=== PATIENT | female | born 1960 | race Caucasian/White ===

== ENCOUNTER 2018-04-19 12:36 | Emergency (ER) | payer BC ==
[~2018-04-19] VITALS: Ht 160 cm; Wt 121.7 kg
[~2018-04-19 12:36] MED LIST: ASPIRIN81 M2 PO; BENTYL20 MG PO; CARAFATE1 GM PO; CIPRO500 MG PO; DOSTINEX PO; DULOXETINE HCL60 MG PO; FIBER1 GM PO; FLAX SEED OIL1 EACH PO; GLUCOSAMINE-CH1 EA33 PO; LISINOPRIL-HCT1 EAC3 PO; LOMOTIL TABLET1 EACH PO; LORTAB 5-325 M1 EACH PO; MELOXICAM15 MG PO; MULTIVITAMIN1 EAC2 PO; PREVACID15 MG PO; PROMETHAZINE HC25 M1 PO; SYNTHROID88 MCG PO; ZOFRAN4 MG PO; ZYRTEC10 M2 PO
[2018-04-19 13:59] LABS: BASOPHIL (%) 0.6 % (0-1); EOSINOPHIL (%) 3.5 % (0-5); EOSINOPHIL COUNT 0.2 K/uL (0-0.3); HEMATOCRIT 41.2 % (36.0-46.0); HEMOGLOBIN 13.8 G/DL (11.9-15.5); IMMATURE GRANULOCYTE (%) 0.5 % (0.0-0.7); LYMPHOCYTE (%) 32.9 % (15-42); LYMPHOCYTE COUNT 2.2 K/uL (1.0-2.8); MCH 28.4 PG (29.0-34.0); MCHC 33.5 G/DL (30.0-36.0); MCV 84.8 FL (83-99); MONOCYTE (%) 8.1 % (3-12); MONOCYTE COUNT 0.5 K/uL (0-0.8); NEUTROPHIL (%) 54.4 % (45-76); NEUTROPHIL COUNT 3.6 K/uL (1.8-6.4); PLATELET COUNT 306 K/uL (156-360); RBC DIS.WIDTH-SD 43.4 % (39-53); RED BLOOD COUNT 4.86 M/uL (3.80-5.20); WHITE BLOOD COUNT 6.6 K/uL (4.1-10.2)
[2018-04-19 14:08] LABS: PTT 31.1 SEC (25-37)
[2018-04-19 14:09] LABS: ALBUMIN 4.5 g/dL (3.2-4.8); CHLORIDE 100 mEq/L (99-109); POTASSIUM 4.2 mEq/L (3.7-5.4); SODIUM 139 mEq/L (136-147)
[2018-04-19 14:12] LABS: GLUCOSE 101 mg/dL (70-99); TOTAL PROTEIN 7.6 g/dL (6.4-8.3)
[2018-04-19 14:13] LABS: TOTAL BILIRUBIN 0.6 mg/dL (0.0-1.0)
[2018-04-19 14:15] LABS: ALKALINE PHOSPHATASE 64 IU/L (3-129); CREATININE 0.8 mg/dL (0.6-1.3); GFR ESTIMATE (CALCULATED) > 59 mL/min/
[2018-04-19 14:16] LABS: UREA NITROGEN (BUN) 17 mg/dL (9-23)
[2018-04-19 14:17] LABS: AST (GOT) 24 IU/L (2-34); DIRECT BILIRUBIN 0.2 mg/dL (0.0-0.3)
[2018-04-19 14:18] LABS: ALT (GPT) 28 IU/L (3-49)
[2018-04-19 15:40] VITALS: BP 177/87
== END 2018-04-19 15:42 | disposition home or self-care (01) ==
LOC: EME 12:36
PROVIDERS: Emergency Medicine
DX: K62.5 Hemorrhage of anus and rectum (principal); F32.9 Major depressive disorder, single episode, unspecified; I10 Essential (primary) hypertension; E11.9 Type 2 diabetes mellitus without complications; Z88.1 Allergy status to other antibiotic agents; Z79.82 Long term (current) use of aspirin
CPT/HCPCS: 80048; 80076; 85025; 85610; 85730; 99281; 99285